=== PATIENT | male | born 1985 | race Caucasian/White ===

== ENCOUNTER 2017-07-05 19:24 | Emergency (ER) | payer MEDICAID ==
[~2017-07-05] VITALS: Ht 162.6 cm; Wt 65.2 kg
[2017-07-05 19:35] VITALS: BP 147/79; PULSE 53; RESP 20; TEMP 98.5; O2SAT 99
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
[2017-07-05] MEDS ORDERED: TETANUS/DIPHTHERIA TOXOID ADULT 0.5 ML VIAL IM ONE (20:30)
--- NOTE | 2017-07-05 21:13 | PD ---
Physical Exam Narrative I was asked by my attending physician Dr. Ward to perform laceration repair of patient's facial lac Data Data Last Documented VS Vital Signs Date Time Temp Pulse Resp B/P (MAP) Pulse Ox O2 Delivery O2 Flow Rate FiO2 07/05/17 19:35 98.5 53 20 147/79 (101) [address] Facial Bones W/O Iv Cont (07/05/17 20:16) Tetanus/Diphtheria Tox Adult (Tetanus/Di (07/05/17 20:30) MDM Supervised Visit with ANA CRISTINA: Yes Procedures Procedure Narrative LACERATION LOCATION: Facial LENGTH: 2 cm V-shaped NUMBER OF STITCHES/CATHERINE: 5 REPAIR: The area of the laceration was prepped with Betadine and sterilely draped. The laceration was infiltrated with 1% lidocaine. The wound was copiously irrigated and explored without evidence of foreign body, tendon injury or neurovascular injury. The wound was closed using 6-0 Ethilon. This was a Single layer repair. A sterile dressing was applied. The patient was advised to keep the dressing clean and dry. Patient tolerated the procedure well. Scripts No Active Prescriptions or Reported Meds Jessica York Jul 05, 2017 21:13
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
[2017-07-05] MEDS ORDERED: AMOXICILLIN/CLAVULANATE K 875 MG TAB PO ONE (22:30)
[2017-07-05] MEDS ORDERED: PERC5TAB12 PO (23:02)
[2017-07-05] MEDS ORDERED: AUGM875T3 PO (23:02)
== END 2017-07-05 23:13 | disposition home or self-care (01) ==
LOC: PHEFT 19:24
DX: S01.412A Laceration without foreign body of left cheek and temporomandibular area, initial encounter (principal); S02.32XA Fracture of orbital floor, left side, initial encounter for closed fracture; S02.40FA Zygomatic fracture, left side, initial encounter for closed fracture; S02.40DA Maxillary fracture, left side, initial encounter for closed fracture; Z23 Encounter for immunization; Y04.2XXA Assault by strike against or bumped into by another person, initial encounter; Y92.488 Other paved roadways as the place of occurrence of the external cause
CPT/HCPCS: 12011; 70486; 90471; 90714